=== PATIENT | male | born 1965 | race African-American/Black ===

== ENCOUNTER 2020-01-22 19:42 | Emergency (ER) | payer MEDICAID, OTHER ==
[~2020-01-22] VITALS: Ht 182.9 cm; Wt 92.0 kg
[2020-01-22 20:45] VITALS: BP 120/77
== END 2020-01-22 22:14 | disposition home or self-care (01) ==
LOC: ER 19:42
DX: F10.129 Alcohol abuse with intoxication, unspecified (principal); R45.1 Restlessness and agitation; Y90.9 Presence of alcohol in blood, level not specified
CPT/HCPCS: 93005; 99283